=== PATIENT | male | born 1955 | race Caucasian/White ===

== ENCOUNTER → 2016-09-20 | Outpatient (CLI) | payer MEDICAID ==
[2016-09-20 07:19] LABS: Basophils % (A) 1 %; CH 30.8; CHCM 32.7; Eosinophils # (A) 0.1 k/uL (0-0.7); Eosinophils % (A) 2 %; HCT 44.3 % (39.0-53.0); HDW 2.36; HGB 14.3 gm/dL (13.0-17.5); Luc % (Auto) 2; Lymphocytes # (A) 2.6 k/uL (1.0-4.8); Lymphocytes % (A) 31 %; MCH 30.6 pg (25.0-35.0); MCHC 32.3 g/dL (31.0-37.0); MCV 94.6 fL (80.0-100.0); Mean Platelet Volume 6.6; Monocytes # (A) 0.6 k/uL (0-1.0); Monocytes % (A) 7 %; Neutrophils # (A) 4.6 k/uL (1.3-7.7); Neutrophils % (A) 57 %; RBC 4.69 m/uL (4.30-5.90); RDW 12.3 % (11.5-15.5); WBC 8.1 k/uL (3.8-10.6); WBC (Perox) 8.39
[2016-09-20 07:39] LABS: Hemoglobin A1C 5.9 % (4.2-6.1)
[2016-09-20 10:46] LABS: ALT 43 U/L (21-72); AST 29 U/L (17-59); Alkaline Phosphatase 83 U/L (38-126); Anion Gap 9 mmol/L; Blood Urea Nitrogen 16 mg/dL (9-20); C Reactive Protein <5.0 mg/L (<10.0); Calcium 9.3 mg/dL (8.4-10.2); Carbon Dioxide 32 mmol/L (22-30); Chloride 103 mmol/L (98-107); Cholesterol 169 mg/dL (<200); Glucose 98 mg/dL (74-99); HDL Cholesterol 57 mg/dL (40-60); Non-African American GFR(MDRD) >60 (>60 ml/min/1.73 sqM); Potassium 4.7 mmol/L (3.5-5.1); Sodium 144 mmol/L (137-145); Total Bilirubin 0.5 mg/dL (0.2-1.3); Total Protein 6.9 g/dL (6.3-8.2); Triglycerides 112 mg/dL (<150)
[2016-09-20 11:12] LABS: Prostate Specific Antigen 1.34 ng/mL (0.00-4.00)
== END | disposition home or self-care (01) ==
LOC: LABWHC1 06:32
PROVIDERS: ATTEND Internal Medicine Geriatric Medicine
DX: E78.00 Pure hypercholesterolemia, unspecified (principal); N40.0 Benign prostatic hyperplasia without lower urinary tract symptoms; R79.9 Abnormal finding of blood chemistry, unspecified
CPT/HCPCS: 36415; 80053; 80061; 83036; 84153; 84439; 84443; 85025; 86140

== ENCOUNTER → 2016-09-25 | Outpatient (CLI) | payer MEDICAID ==
--- NOTE | 2016-09-25 11:52 | ECHOS ---
DATE OF SERVICE: 09/25/2016 AGE: 60Y SEX: M HT: 69" WT: 185 lbs. Protocol Miguel: X Others: Stress Echo Stage: IV Dur. of Exercise: 9:59 *Heart Rate Blood Pressure *Rest: 61 Rest: 122/84 * *Max. Achieved: 157 Maximum BP: 179/64 85% PMHR: 136 100% PMHR: 160 *METS: 11.5 INDICATIONS: Shortness of breath. MEDICATIONS: Lipitor, Singulair. STRESS DATA: Pretesting physical examination showed a heart rate of 61, pressure is 122/84 mmHg. Baseline EKG showed sinus mechanism. The patient exercised on the treadmill according to Miguel protocol for a total of 9 minutes and 59 seconds and achieved 11.5 METs. Max heart rate was 157, which is about 94% of maximum predicted heart rate. Maximum blood pressure was 179/64 mmHg. Clinically, the patient did not have any symptoms of chest pain or discomfort and the EKG did not show any significant ST or T-wave abnormalities consistent with ischemia. ECHOCARDIOGRAM IMAGES: Echocardiogram images from parasternal long axis view, parasternal short axis, apical 4 chambers and apical 2 chamber view were obtained as the baseline images, at the peak of the heart rate, as well as on recovery and the echocardiogram images showed good augmentation in the left ventricular systolic function without any evidence of wall motion abnormalities consistent with ischemia. CONCLUSION: 1. Good exercise capacity. 2. Normal EKG in response to exercise. 3. Normal echocardiogram in response to exercise.
== END | disposition home or self-care (01) ==
LOC: RADNMMAIN 10:07
PROVIDERS: ATTEND Internal Medicine Geriatric Medicine
DX: R06.02 Shortness of breath (principal)
CPT/HCPCS: 93017; 93350

== ENCOUNTER → 2016-10-02 | Outpatient (CLI) | payer MEDICAID | END | disposition home or self-care (01) | LOC: LABWHC1 09:56 | PROVIDERS: ATTEND Otolaryngology | DX: E04.1 Nontoxic single thyroid nodule (principal) | CPT/HCPCS: 36415; 82330; 86376 ==

== ENCOUNTER → 2016-10-04 | Outpatient (CLI) | payer MEDICAID ==
--- NOTE | 2016-10-04 18:33 | US ---
EXAMINATION TYPE: US thyroid st tissue head/neck DATE OF EXAM: 10/04/2016 6:02 PM COMPARISON: No previous CLINICAL HISTORY: thyroid nodule E04.1. Thyroid nodule, history of thyroid bx. GLAND SIZE: Right Lobe: 5.7 x 1.6 x 1.7 cm Overall Parenchyma: homogenous Left Lobe: 3.7 x 1.4 x 1.2 cm Overall Parenchyma: homogeneous Isthmus Thickness: 0.4 cm NODULES RIGHT: # of nodules measured on right: 0 LEFT: # of nodules measured on left: 0 ISTHMUS: # of nodules measured in the isthmus: 1 1. 3.2 X 1.2 x 2.4 cm hypoechoic solid nodule at the mid pole with well-defined margins. This nodul e is wider than tall and shows intranodular vascularity. Prior size: no previous TECHNOLOGIST IMPRESSION: Homogeneous thyroid with right lobe measuring 2cm larger than left lobe wit h isthmus nodule described above, bilateral neck scanned, no abnormal lymphadenopathy noted. IMPRESSION: There is a solid oval-shaped mass involving the isthmus. Since this is a solitary dominant mass, the possibility of malignancy should be considered. Nuclear thyroid scan might be helpful for further lyndon luation to see if this is functioning tissue.
== END | disposition home or self-care (01) ==
LOC: RADUSMAIN 17:43
PROVIDERS: ATTEND Otolaryngology
DX: E04.1 Nontoxic single thyroid nodule (principal)
CPT/HCPCS: 76536

== ENCOUNTER 2016-10-31 13:31 | Day surgery (SDC) | payer MEDICAID ==
[2016-10-28 11:42] VITALS: BMI 27.3
[~2016-10-31 13:31] MED LIST: DEXAMETHASONE SOD PHOSPHATE 10 MG/ML 1 ML VIAL IV ONE; DEXAMETHASONE SOD PHOSPHATE 4 MG/ML 1 ML VIAL IV ONE; FAMOTIDINE 20 MG/2 ML VIAL IV ONE; HYDROmorphone 1 MG/ML 1 ML SYRINGE IVP PRN; ONDANSETRON 4 MG/2 ML VIAL IVP ONE; Pre Op ABX Message 1 EACH MISC MISCELLANE ONE
[2016-10-31 13:55] VITALS: RESP 16
[2016-10-31] MEDS: LACTATED RINGERS 1,000 ML IV SCH ×2 (14:04→15:27)
[2016-10-31] MEDS ORDERED: LIDOCAINE 1% 20 ML VIAL (10MG/ML) FOR IV START INTRADERMA ONE (14:04)
[2016-10-31] MEDS ORDERED: LIDOCAINE 1% INJ 10MG/ML (20 ML MDV) ONE (15:27)
[2016-10-31] MEDS ORDERED: MIDAZOLAM 2 MG/2 ML VIAL ONE (15:27)
[2016-10-31] MEDS ORDERED: SUCCINYLCHOLINE CHLORIDE 100 MG/5 ML SYR IV ONE (15:27)
[2016-10-31] MEDS ORDERED: PROPOFOL 10 MG/ML 20 ML VIAL IV ONE (15:27)
[2016-10-31] MEDS ORDERED: fentaNYL (PF) 50 MCG/ML 2 ML AMP ONE (15:27)
[2016-10-31] MEDS ORDERED: SODIUM CHLORIDE 0.9% 100 ML with CLINDAMYCIN 600 MG IV ONE ×2 (15:27)
[2016-10-31] MEDS ORDERED: LIDOCAINE 1%-EPI 1:100,000 20 ML VIAL SQ ONE ×2 (15:56)
[2016-10-31] MEDS ORDERED: LACTATED RINGERS 1,000 ML IV ONE (16:12)
[2016-10-31 17:08] VITALS: TEMP 97.8
--- NOTE | 2016-10-31 17:18 | P.OP ---
Date of Procedure: 10/31/16 Preoperative Diagnosis: Thyroid mass Postoperative Diagnosis: Same Procedure(s) Performed: Thyroid isthmusectomy along with a subtotal left thyroid lobectomy Anesthesia: HANNAHA Surgeon: Jimy Aguirre Estimated Blood Loss (ml): 5 Pathology: other (Thyroid mass) Condition: stable Disposition: PACU Indications for Procedure: Patient is a thyroid mass that is suspicious for malignancy surgical removal was recommended Operative Findings: Patient has a thyroid isthmus and left lobe mass Description of Procedure: This patient was taken to the operative room and placed in the supine position. A general inhalation anesthetic was administered to the patient by mask and subsequently intubated with a cuffed endotracheal tube with use of a name monitor. We monitored the recurrent laryngeal nerve throughout the entire procedure. 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 We elevated the strap muscles accordingly and ligated the right thyroid isthmus with use of the LigaSure. We continued our dissection and identified this thyroid isthmus mass with involvement of the left lobe of the thyroid. With use of a LigaSure we remove this mass along with a portion of the left thyroid lobe. Excellent results were obtained. Hemostasis was excellent. FloSeal was placed. The strap muscles were reapproximated with use of a 40 Vicryl. The platysmas was closed with 4-0 Vicryl. The skin subcutaneously was closed with 4-0 Monocryl and the skin was closed with a 5 and 6-0 nylon. Steri-Strips and a Medipore tape was applied. The patient tolerated this well and follow-up will be in the office in one week the patient is to contact me if any problems should arise.
[2016-10-31] MEDS ORDERED: HYDROcodone/APAP 5-325MG 1 EACH TAB PO ONE (18:11)
[2016-10-31 18:39] VITALS: BP 143/80; PULSE 68
== END 2016-10-31 18:59 | disposition home or self-care (01) ==
LOC: OR 13:31
PROVIDERS: ATTEND Otolaryngology
DX: D34 Benign neoplasm of thyroid gland (principal); E78.5 Hyperlipidemia, unspecified; Z88.0 Allergy status to penicillin; Z88.8 Allergy status to other drugs, medicaments and biological substances; Z87.891 Personal history of nicotine dependence; Z79.899 Other long term (current) drug therapy
CPT/HCPCS: 60210; 82310; 88307; C1762; J2250; J1100; J2405; J2001; J3010; J0330; J2704

== ENCOUNTER → 2016-11-19 | Outpatient (CLI) | payer MEDICAID ==
[2016-11-19 07:40] LABS: Blood Urea Nitrogen 18 mg/dL (9-20); Non-African American GFR(MDRD) >60 (>60 ml/min/1.73 sqM)
== END | disposition home or self-care (01) ==
LOC: LABWHC1 06:57
PROVIDERS: ATTEND Nurse Practitioner Family
DX: Z01.812 Encounter for preprocedural laboratory examination (principal); H93.19 Tinnitus, unspecified ear; H91.90 Unspecified hearing loss, unspecified ear
CPT/HCPCS: 36415; 82565; 84520

== ENCOUNTER → 2016-11-20 | Outpatient (CLI) | payer MEDICAID ==
--- NOTE | 2016-11-20 08:03 | MR ---
EXAMINATION TYPE: MR brain and iac wo/w con DATE OF EXAM: 11/20/2016 7:55 AM COMPARISON: NONE HISTORY: tinnitus, hearing loss left greater than right. TECHNIQUE: Multiplanar, multisequence images of the brain and brainstem is performed without and with IV contras t, utilizing 17 mL intravenous MultiHance . Acoustic nerve disorder protocol. FINDINGS: Diffusion weighted images demonstrate no evidence of a recent infarct or other diffusion ab normality. There is no worrisome extra-axial fluid collection. There are a few scattered foci of T2 hyperintensity seen throughout the white matter bilaterally. Approximately 10 scattered lesions are p resent. Since are nonspecific in appearance and distribution. The ventricular system and cisternal s paces are normal in size and appearance. The brain volume is age appropriate. Midline structures demonstrate normal morphology. The craniocervical junction appears within normal limits. Post contrast images demonstrate no abnormal enhancement. Note is made of a dominant left ve rtebral artery. The dural venous sinuses appear patent. The visualized sinuses are clear and the glob es are intact. No suspicious increased fluid signal is seen in mastoid air cells bilaterally. Vestibulocochlear comp lexes are symmetric and felt within normal limits. No suspicious enhancing cerebellopontine angle mas s is identified bilaterally. IMPRESSION: 1. Mild nonspecific white matter changes presumed on basis of product of chronic small vessel ischemi c change in patient of this age. 2. No significant finding is seen to account for patient's symptoms of tinnitus and hearing loss.
== END | disposition home or self-care (01) ==
LOC: RADMRIMAIN 07:02
PROVIDERS: ATTEND Nurse Practitioner Family
DX: H93.19 Tinnitus, unspecified ear (principal); H91.90 Unspecified hearing loss, unspecified ear
CPT/HCPCS: 70553; A9577

== ENCOUNTER → 2016-12-20 | Outpatient (CLI) | payer MEDICAID ==
[2016-12-20 09:30] LABS: Calcium 9.7 mg/dL (8.4-10.2)
== END | disposition home or self-care (01) ==
LOC: LABWHC1 08:58
PROVIDERS: ATTEND Otolaryngology
DX: E03.9 Hypothyroidism, unspecified (principal)
CPT/HCPCS: 36415; 82310; 84439; 84443; 86376

== ENCOUNTER → 2017-05-30 | Outpatient (CLI) | payer BC | END | disposition home or self-care (01) | LOC: LABWHC1 07:10 | PROVIDERS: ATTEND Internal Medicine Geriatric Medicine | DX: E03.9 Hypothyroidism, unspecified (principal) | CPT/HCPCS: 36415; 84439; 84443 ==

== ENCOUNTER → 2017-09-30 | Outpatient (CLI) | payer BC ==
[2017-09-30 07:22] LABS: Basophils # (A) 0.1 k/uL (0-0.2); Basophils % (A) 1 %; Eosinophils # (A) 0.2 k/uL (0-0.7); Eosinophils % (A) 2 %; HCT 45.7 % (39.0-53.0); HGB 14.7 gm/dL (13.0-17.5); Lymphocytes % (A) 34 %; MCH 30.2 pg (25.0-35.0); MCHC 32.1 g/dL (31.0-37.0); MCV 94.1 fL (80.0-100.0); Mean Platelet Volume 6.8; Monocytes # (A) 0.6 k/uL (0-1.0); Monocytes % (A) 7 %; Neutrophils # (A) 4.6 k/uL (1.3-7.7); Neutrophils % (A) 54 %; Platelet Count 277 k/uL (150-450); RBC 4.85 m/uL (4.30-5.90); RDW 12.4 % (11.5-15.5); WBC 8.6 k/uL (3.8-10.6)
[2017-09-30 10:47] LABS: ALT 26 U/L (21-72); AST 24 U/L (17-59); Albumin 3.9 g/dL (3.5-5.0); Alkaline Phosphatase 87 U/L (38-126); Anion Gap 9 mmol/L; Blood Urea Nitrogen 25 mg/dL (9-20); Calcium 9.2 mg/dL (8.4-10.2); Carbon Dioxide 32 mmol/L (22-30); Chloride 104 mmol/L (98-107); Cholesterol 188 mg/dL (<200); Glucose 95 mg/dL (74-99); HDL Cholesterol 46 mg/dL (40-60); LDL Cholesterol,Calculated 100 mg/dL (0-99); Potassium 4.6 mmol/L (3.5-5.1); Sodium 145 mmol/L (137-145); Total Bilirubin 0.2 mg/dL (0.2-1.3); Total Protein 6.5 g/dL (6.3-8.2); Triglycerides 209 mg/dL (<150)
[2017-09-30 11:03] LABS: T4, Free (Free Thyroxine) 0.79 ng/dL (0.78-2.19)
[2017-09-30 11:17] LABS: Prostate Specific Antigen 1.47 ng/mL (0.00-4.00)
[2017-09-30 16:36] LABS: Hemoglobin A1C 5.6 % (4.0-6.0)
== END | disposition home or self-care (01) ==
LOC: LABWHC1 06:38
PROVIDERS: ATTEND Internal Medicine Geriatric Medicine
DX: Z00.00 Encounter for general adult medical examination without abnormal findings (principal); N40.0 Benign prostatic hyperplasia without lower urinary tract symptoms; E03.9 Hypothyroidism, unspecified; R79.9 Abnormal finding of blood chemistry, unspecified; G36.8 Other specified acute disseminated demyelination
CPT/HCPCS: 36415; 80053; 80061; 83036; 84153; 84439; 84443; 85025

== ENCOUNTER → 2018-09-18 | Outpatient (CLI) | payer BC ==
[2018-09-18 11:18] LABS: Albumin 4.6 g/dL (3.80-4.90); Albumin/Globulin Ratio 2.3 (1.60-3.17); Anion Gap 7.8 mmol/L (4.00-12.00); Calcium 9.3 mg/dL (8.7-10.3); Carbon Dioxide 30.2 mmol/L (21.6-31.8); LDL Cholesterol,Calculated 110.4 mg/dL (0.0-131.0); Potassium 4.4 mmol/L (3.5-5.5); Total Bilirubin 0.7 mg/dL (0.3-1.2); Total Protein 6.6 g/dL (6.2-8.2); VLDL Calculation 27.6 mg/dL (5.00-40.00)
[2018-09-18 12:57] LABS: T4, Free (Free Thyroxine) 1.1 ng/dL (0.80-1.80)
== END | disposition home or self-care (01) ==
LOC: LABWHC1 07:00
PROVIDERS: ATTEND Internal Medicine Geriatric Medicine
DX: E78.5 Hyperlipidemia, unspecified (principal); E03.9 Hypothyroidism, unspecified
CPT/HCPCS: 36415; 80053; 80061; 84439; 84443

== ENCOUNTER → 2019-04-27 | Outpatient (CLI) | payer BC ==
[2019-04-27 07:24] LABS: Appearance,Urine Clear (Clear); Bilirubin,Urine Negative (Negative); Blood,Urine Negative (Negative); Color,Urine Yellow; Glucose,Urine (UA) Negative (Negative); Ketones,Urine Negative (Negative); Leukocyte Esterase,Urine Negative (Negative); Nitrite,Urine Negative (Negative); PH, Urine 6.5 (5.0-8.0); Protein,Urine Negative (Negative); Specific Gravity,Urine 1.018 (1.001-1.035); Urobilinogen,Urine <2.0 mg/dL (<2.0)
[2019-04-27 07:26] LABS: Basophils # (A) 0.1 k/uL (0-0.2); Basophils % (A) 1 %; Eosinophils # (A) 0.2 k/uL (0-0.7); Eosinophils % (A) 3 %; HCT 42.7 % (39.0-53.0); HGB 14.4 gm/dL (13.0-17.5); Lymphocytes # (A) 2.4 k/uL (1.0-4.8); Lymphocytes % (A) 32 %; MCHC 33.6 g/dL (31.0-37.0); MCV 92.1 fL (80.0-100.0); Mean Platelet Volume 6.8; Monocytes # (A) 0.5 k/uL (0-1.0); Monocytes % (A) 7 %; Neutrophils % (A) 55 %; Platelet Count 292 k/uL (150-450); RBC 4.64 m/uL (4.30-5.90); RDW 12.9 % (11.5-15.5); WBC 7.3 k/uL (3.8-10.6)
[2019-04-27 11:07] LABS: African American GFR (CKD) 74.1 (60.0-200.0); Albumin 4.4 g/dL (3.80-4.90); Albumin/Globulin Ratio 2.44 (1.60-3.17); Anion Gap 8.1 mmol/L (4.00-12.00); BUN/Creat Ratio 17.5 Ratio (12.00-20.00); Calcium 9.2 mg/dL (8.7-10.3); Carbon Dioxide 26.9 mmol/L (21.6-31.8); Chol/HDL Ratio 3.54; Globulin 1.8 g/dL (1.6-3.3); Potassium 4.4 mmol/L (3.5-5.5); Total Bilirubin 0.2 mg/dL (0.2-1.2); Total Protein 6.2 g/dL (6.2-8.2); Uric Acid 4.8 mg/dL (3.7-8.7)
[2019-04-27 15:31] LABS: Hemoglobin A1C 5.7 % (4.0-6.0)
== END | disposition home or self-care (01) ==
LOC: LABWHC1 06:54
PROVIDERS: ATTEND Internal Medicine Geriatric Medicine
DX: E03.9 Hypothyroidism, unspecified (principal); E78.5 Hyperlipidemia, unspecified; N40.0 Benign prostatic hyperplasia without lower urinary tract symptoms
CPT/HCPCS: 36415; 80053; 80061; 81003; 83036; 84153; 84439; 84443; 84550; 85025

== ENCOUNTER 2019-07-30 10:17 | Day surgery (SDC) | payer BC ==
[2019-07-28 09:47] VITALS: BMI 29.5
[~2019-07-30 10:17] MED LIST changes: -DEXAMETHASONE SOD PHOSPHATE 10 MG/ML 1 ML VIAL IV ONE; -DEXAMETHASONE SOD PHOSPHATE 4 MG/ML 1 ML VIAL IV ONE; -FAMOTIDINE 20 MG/2 ML VIAL IV ONE; -HYDROmorphone 1 MG/ML 1 ML SYRINGE IVP PRN; +LACTATED RINGERS 1,000 ML IV SCH; +LIDOCAINE 1% 20 ML VIAL (10MG/ML) FOR IV START INTRADERMA PRN; -ONDANSETRON 4 MG/2 ML VIAL IVP ONE; -Pre Op ABX Message 1 EACH MISC MISCELLANE ONE
[2019-07-30 10:33] VITALS: RESP 16; TEMP 97.2
[2019-07-30] MEDS ORDERED: PROPOFOL 10 MG/ML 20 ML VIAL IV ONE (11:57)
--- NOTE | 2019-07-30 12:04 | P.GSHP ---
History of Present Illness H&P Date: 07/30/19 Chief Complaint: Colon cancer screening Patient today for colonoscopy. Last colonoscopy 10 years ago. Has complaints of hemorrhoids at times otherwise normal. No family history of colon cancer. Past Medical History Past Medical History: Hearing Disorder / Deafness, Hyperlipidemia, Thyroid Disorder Additional Past Medical History / Comment(s): THYROID NODULE,SUN'AQ-[facility] [employer] History of Any Multi-Drug Resistant Organisms: None Reported Additional Past Surgical History / Comment(s): COLONOSCOPY,thyrodectomy Past Anesthesia/Blood Transfusion Reactions: No Reported Reaction Smoking Status: Former smoker - Past Family History Mother Daughter(s) Family Medical History: Cancer Medications and Allergies Home Medications Medication Instructions Recorded Confirmed Type Levothyroxine Sodium [Synthroid] 25 mcg PO QAM 07/28/19 07/30/19 History Naproxen Sodium [Aleve] 220 mg PO BID 07/28/19 07/28/19 History Allergies Allergy/AdvReac Type Severity Reaction Status Date / Time Penicillins Allergy Swelling, Verified 07/30/19 10:29 RASH rosuvastatin [From Crestor] Allergy Swelling, Verified 07/30/19 10:29 RASH Surgical - Exam Vital Signs Temp Pulse Resp Pulse Ox 97.2 F L 60 16 97 07/30/19 10:32 07/30/19 10:32 07/30/19 10:32 07/30/19 10:32 Physical exam: General: Well-developed, well-nourished HEENT: Normocephalic, sclerae nonicteric Abdomen: Nontender, nondistended Extremities: No edema Neuro: Alert and oriented Assessment and Plan (1) Colon cancer screening Narrative/Plan: Will proceed with colonoscopy Current Visit: Yes Status: Acute Code(s): Z12.11 - ENCOUNTER FOR SCREENING FOR MALIGNANT NEOPLASM OF COLON SNOMED Code(s): 852274944
--- NOTE | 2019-07-30 12:26 | P.PCN ---
Date of Procedure: 07/30/19 Procedure(s) Performed: PREOPERATIVE DIAGNOSIS: Colon cancer screening POSTOPERATIVE DIAGNOSIS: Diverticulosis PROCEDURE: Colonoscopy ANESTHESIA: MAC SURGEON: Dameon Stock M.D. SPECIMENS: None ENDOSCOPIC PROCEDURE: The patient was placed on the endoscopy table in the left decubitus position. The Olympus colonoscope was inserted into the anus and passed under direct visualization to the base of the cecum. The appendiceal orifice was visualized. From that point the scope was slowly withdrawn inspe cting all surfaces carefully. There were no neoplastic inflammatory or polypoid lesions throughout the cecum, ascending, transverse, descending, sigmoid and rectum. There was left-sided diverticulosis noted. Patient's prep was slightly suboptimal. Digital rectal examination was normal. The patient was taken to the recovery room in stable condition per anesthesia guidelines. RECOMMENDATIONS: Increase fiber. Follow-up colonoscopy 10 years.
[2019-07-30] MEDS ORDERED: LACTATED RINGERS 1,000 ML IV ONE (12:28)
[2019-07-30 12:52] VITALS: BP 110/57; PULSE 58
== END 2019-07-30 13:01 | disposition home or self-care (01) ==
LOC: ORWHC2ENDO 10:17
PROVIDERS: ATTEND Surgery
DX: Z12.11 Encounter for screening for malignant neoplasm of colon (principal); K57.30 Diverticulosis of large intestine without perforation or abscess without bleeding; H91.93 Unspecified hearing loss, bilateral; E78.5 Hyperlipidemia, unspecified; E04.1 Nontoxic single thyroid nodule; E89.0 Postprocedural hypothyroidism; Z97.4 Presence of external hearing-aid; Z98.890 Other specified postprocedural states; Z87.891 Personal history of nicotine dependence; Z79.890 Hormone replacement therapy; Z79.1 Long term (current) use of non-steroidal anti-inflammatories (NSAID); Z88.0 Allergy status to penicillin; Z88.8 Allergy status to other drugs, medicaments and biological substances; Z80.9 Family history of malignant neoplasm, unspecified
CPT/HCPCS: J2704; G0121

== ENCOUNTER → 2020-01-03 | Outpatient (CLI) | payer MEDICAID ==
--- NOTE | 2020-01-03 09:36 | XR ---
EXAMINATION TYPE: XR lumbar spine 2 or 3V DATE OF EXAM: 01/03/2020 CLINICAL HISTORY: pain TECHNIQUE: Three views of the lumbar spine are submitted. COMPARISON: None. FINDINGS: There are 5 lumbar type vertebral bodies identified. The lumbar spine shows satisfactory alignment w ithout evidence of acute fracture or dislocation. Vertebral body heights are within normal limits. Mild degenerative disc space narrowing and minimal ventral spondylosis. The overlying soft tissue ap pears unremarkable. IMPRESSION: No acute fracture or dislocation is seen in the lumbar spine. ICD 10 NO FRACTURE, INITIAL EVALUATION
== END | disposition home or self-care (01) ==
LOC: RADXRMAIN 09:17
PROVIDERS: ATTEND Internal Medicine Geriatric Medicine
DX: M54.9 Dorsalgia, unspecified (principal)
CPT/HCPCS: 72100

== ENCOUNTER → 2020-01-25 | Outpatient (CLI) | payer MEDICAID ==
--- NOTE | 2020-01-25 15:37 | MR ---
EXAMINATION TYPE: MR lumbar spine wo con DATE OF EXAM: 01/25/2020 COMPARISON: Lumbar spine x-rays dated 01/03/2020 HISTORY: LBP, LLE radic, injury 6 weeks ago TECHNIQUE: Multiplanar, multisequence images of the lumbar spine were acquired. FINDINGS: Multiple rudimentary sacral discs are seen. There is a T2 hyperintense and T1 very mildly p eripherally hyperintense possible atypical vertebral body hemangioma. Lumbar spine vertebral bodies m aintain normal vertebral body heights and alignment. Disc herniation seen at L5-S1. Conus medullaris is unremarkable terminating at L1. Possible left renal sinus cyst that could be evaluated with ultras ound. This is suboptimally evaluated as it is incompletely visualized and there is extensive motion. This is T2 hyperintense and T1 hypointense. L1-L2: There is a central subligamentous disc extrusion with 1.1 cm cranial disc migration. No spinal canal stenosis nor significant neural foraminal narrowing seen. L2-L3: There is a broad-based disc bulge and facet arthropathy with minimal ligamentum flavum bucklin g creating mild bilateral neural foraminal narrowing, left greater than right, without spinal canal s tenosis. L3-L4: There is a broad-based disc bulge, facet arthropathy, and ligamentum flavum buckling create mi ld bilateral neural foraminal narrowing without spinal canal stenosis. L4-L5: There is facet arthropathy, broad-based disc bulge, and ligamentum flavum buckling contributin g to mild to moderate bilateral neural foraminal narrowing without spinal canal stenosis. L5-S1: There is a left paracentral disc herniation extending into the left lateral recess and thicken ing of the left neural foramen appearing to have mass effect on the S1 left nerve root. This is super imposed on a broad-based disc bulge contributing to minimal bilateral neural foraminal narrowing with out spinal canal stenosis. IMPRESSION: 1. Large left paracentral disc herniation extending into the left lateral recess with mass effect on the left S1 nerve root. 2. Central disc herniation at L1-L2 with 1.1 cm cranial disc migration but without spinal canal steno sis or neural foraminal narrowing. 3. Possible atypical vertebral body hemangioma at L4. Nuclear medicine bone scan recommended to ensur e no abnormal uptake. 4. Probable left renal sinus cyst that could be further evaluated with ultrasound. 5.. Remaining lumbar vertebral levels demonstrate overall mild degenerative disc disease with variabl e degree neural foraminal narrowing as detailed above.
== END | disposition home or self-care (01) ==
LOC: RADMRIMAIN 12:24
PROVIDERS: ATTEND Nurse Practitioner Gerontology
DX: M51.26 Other intervertebral disc displacement, lumbar region (principal); M51.36 Other intervertebral disc degeneration, lumbar region
CPT/HCPCS: 72148

== ENCOUNTER → 2020-02-15 | Outpatient (CLI) | payer MEDICAID ==
--- NOTE | 2020-02-15 15:54 | XR ---
EXAMINATION TYPE: XR lumbar spine with bend/flex DATE OF EXAM: 02/15/2020 CLINICAL HISTORY: pain COMPARISON: NONE TECHNIQUE: Frontal, lateral, and oblique images of the lumbar spine are obtained. Flexion and extensi on views are also submitted. FINDINGS: There are 5 lumbar type vertebral bodies identified. The lumbar spine shows satisfactory alignment without evidence of acute fracture or dislocation. Vertebral body heights are within normal limits. Disc spaces are well preserved. The overlying soft tissue appears unremarkable. Alignment is stable at flexion and extension and neutral. IMPRESSION: No acute fracture or dislocation is seen in the lumbar spine.ICD 10 NO FRACTURE, INITIAL EVALUATION
== END | disposition home or self-care (01) ==
LOC: RADXRMAIN 15:27
PROVIDERS: ATTEND Neurological Surgery
DX: M47.26 Other spondylosis with radiculopathy, lumbar region (principal)
CPT/HCPCS: 72114

== ENCOUNTER → 2020-03-17 | Outpatient (CLI) | payer MEDICAID ==
--- NOTE | 2020-03-17 14:42 | XR ---
EXAMINATION TYPE: XR chest 2V DATE OF EXAM: 03/17/2020 COMPARISON: NONE HISTORY: Shortness of breath TECHNIQUE: Frontal and lateral views of the chest are obtained. FINDINGS: Scattered senescent parenchymal changes noted. Hyperinflation compatible with COPD. No evidence for infiltrate. No evidence for atelectasis. Heart size is stable. Mediastinal structures are stable and grossly unremarkable. No evidence for hilar prominence. Degenerative changes dorsal spine. IMPRESSION: 1. No evidence for acute pulmonary disease.
== END | disposition home or self-care (01) ==
LOC: LABWHC1 13:48
PROVIDERS: ATTEND Neurological Surgery
DX: M47.26 Other spondylosis with radiculopathy, lumbar region (principal); M47.896 Other spondylosis, lumbar region; M51.16 Intervertebral disc disorders with radiculopathy, lumbar region
CPT/HCPCS: 71046; 87070

== ENCOUNTER → 2020-04-07 | Outpatient (CLI) | payer MEDICAID | END | disposition home or self-care (01) | LOC: LABWHC1 07:00 | PROVIDERS: ATTEND Neurological Surgery | DX: M47.26 Other spondylosis with radiculopathy, lumbar region (principal); M47.896 Other spondylosis, lumbar region; M51.16 Intervertebral disc disorders with radiculopathy, lumbar region | CPT/HCPCS: 86850; 86900; 86901 ==

== ENCOUNTER → 2021-03-07 | Outpatient (CLI) | payer MEDICARE ==
--- NOTE | 2021-03-07 12:48 | XR ---
EXAMINATION TYPE: XR Hip Bilateral Complete DATE OF EXAM: 03/07/2021 CLINICAL HISTORY: bilateral hip pain. TECHNIQUE: AP and frogleg views of each hip were obtained. COMPARISON: None. FINDINGS: There is no acute fracture/dislocation evident in the hips. There is subchondral sclerosi s bilaterally. IMPRESSION: Bilateral osteoarthritic changes of the hips.
== END | disposition home or self-care (01) ==
LOC: RADXRMAIN 12:05
PROVIDERS: ATTEND Internal Medicine Geriatric Medicine
DX: M16.0 Bilateral primary osteoarthritis of hip (principal)
CPT/HCPCS: 73521

== ENCOUNTER → 2024-05-27 | Outpatient (CLI) | payer MEDICARE ==
--- NOTE | 2024-05-27 12:34 | XR ---
EXAMINATION TYPE: XR chest 2V DATE OF EXAM: 05/27/2024 COMPARISON: 03/17/20 HISTORY: Shortness of breath TECHNIQUE: Frontal and lateral views of the chest are obtained. FINDINGS: Scattered senescent parenchymal changes noted. Hyperinflation compatible with COPD. No evidence for infiltrate. No evidence for atelectasis. Heart size is stable. Mediastinal structures are stable and grossly unremarkable. No evidence for hilar prominence. Degenerative changes dorsal spine. IMPRESSION: 1. No evidence for acute pulmonary disease. [facility], , 05/27/2024 12:31 PM
== END | disposition home or self-care (01) ==
LOC: RADXRMAIN 12:06
PROVIDERS: ATTEND Internal Medicine Geriatric Medicine
CPT/HCPCS: 71046

== ENCOUNTER → 2024-06-04 | Outpatient (CLI) | payer MEDICARE ==
--- NOTE | 2024-06-04 09:46 | CTL ---
EXAMINATION TYPE: CT Low Dose Lung DATE OF EXAM: 06/04/2024 8:58 AM CLINICAL INDICATION: Male, 68 years old with history of LOW DOSE SCREENING; personal history of nicot ine dependence , history of tobacco use. COMPARISON: None. TECHNIQUE: Multiple axial non-contrast scans were obtained from approximately the lung apices through the upper abdomen. Coronal and sagittal reformatted images were obtained. Low dose technique was uti lized. MIP were created on a separate workstation and submitted for review. CT DLP: 100 mGycm, Automated exposure control for dose reduction was used. CT Contrast: Contrast used: None Oral contrast used: None FINDINGS: ======== Lack of intravenous contrast and low dose technique limits the evaluation of the vascular and soft ti ssue structures. LUNGS: No evidence of pulmonary fibrosis. No evidence of focal consolidation, pneumothorax or pleural effusion. Centrilobular emphysema changes. Nodules: RUL: None. RML: None. RLL: None. HORTENSIA: None. LLL: None. AIRWAY: Patent and unremarkable. HEART: Size within normal limits. MEDIASTINUM: No gross evidence of adenopathy. VASCULATURE: No aortic aneurysm. MUSCULOSKELETAL: No acute osseous abnormalities SOFT TISSUES/LYMPH NODES: Unremarkable. LOWER NECK: No significant findings. UPPER ABDOMEN: Left peripelvic renal cyst. IMPRESSION: 1. No clinically significant pulmonary nodules. 2. Mild emphysema. CT LUNG RAD AND CT CHEST RECOMMENDATION: Lung-Rad 1 Negative: Continue annual screening with LDCT in 12 months. S Modifier (other clinically significant findings): None Recommend smoking cessation (if current smoker), or continuation of smoking cessation (if prior smoke r). Annual screening for lung cancer with low-dose computed tomography is recommended in adults ages 55 to 77 years who have a 30 pack-year smoking history and currently smoke or have quit within the pa st 15 years. Screening should be discontinued once a person has not smoked for 15 years or develops a health problem that substantially limits life expectancy or the ability or willingness to have curat robyn lung surgery. Lung rads 2021 [email or web address] [facility], , 06/04/2024 9:44 AM
== END | disposition home or self-care (01) ==
LOC: RADCTMAIN 08:37
PROVIDERS: ATTEND Internal Medicine Geriatric Medicine
CPT/HCPCS: 71271